=== PATIENT | male | born 2000 | race Caucasian/White ===

== ENCOUNTER 2019-12-19 12:27 | Emergency (ER) | payer BC ==
[~2019-12-19] VITALS: Ht 190.5 cm; Wt 75.0 kg
[2019-12-19] MEDS ORDERED: ZYRTEC 10MG10 MG PO (13:13)
[2019-12-19 13:30] VITALS: BP 106/68; PULSE 108; TEMP 99.4
[2019-12-21] MEDS ORDERED: ZOFRAN 4MG T4 MG/TAB PO (12:29)
== END 2019-12-19 13:32 | disposition home or self-care (01) ==
LOC: COL.ER 12:27
DX: B34.9 Viral infection, unspecified (principal); J30.9 Allergic rhinitis, unspecified; Z20.828 Contact with and (suspected) exposure to other viral communicable diseases; Z87.891 Personal history of nicotine dependence